=== PATIENT | female | born 1950 ===

== ENCOUNTER 2021-01-04 18:30 | Inpatient (IN) | payer OTHER ==
[~2021-01-04] VITALS: Ht 165.1 cm; Wt 78.6 kg
--- NOTE | 2021-01-04 18:45 | NUR ---
bib ems from home. pt seen at earlier today where pt states given dx of pna. pt then went home and had difficulty breathing. per ems resp rate of 40 and wheezes in all feilds with rhonchi in uppers. albuterol and duo neb admin. pt in room and placed on room air. pt speaking in full sentences and in nad. pt fully vaccinated with pfizer. covid test today at [facility]. ekg performed, pt placed on cardiac, nibp and o2 monitoring.
--- NOTE | 2021-01-04 18:49 | NUR ---
per pt with taina alves at bedside. if anything were to happen no cpr. pt is ok with being intubated.
[2021-01-04] MEDS ORDERED: ALBUTEROL/IPRATROPIUM 2.5MG/0.5MG, 3 ML NPPB ONE (19:30)
[2021-01-04] MEDS ORDERED: DEXAMETHASONE 4 MG TABLET PO ONE (19:30)
[2021-01-04] MEDS ORDERED: DEXAMETHASONE 4 MG TABLET ONE (19:32)
[2021-01-04] MEDS ORDERED: ALBUTEROL/IPRATROPIUM 2.5MG/0.5MG, 3 ML ONE (19:33)
--- NOTE | 2021-01-04 20:33 | NUR ---
GIL ROBERTSON [phone]
[2021-01-04 20:46] LABS: BASOPHILS % (AUTO) 0 % (0-1); EOSINOPHILS % (AUTO) 1 % (1-7); LYMPHOCYTES % (AUTO) 10 % (22-44); MEAN CORPUSCULAR HEMOGLOBIN 31.5 pg (27.0-34.8); MEAN PLATELET VOLUME 8.1 fL (7.4-10.4); MONOCYTES % (AUTO) 11 % (2-9); NEUTROPHILS % (AUTO) 78 % (42-75); PLATELET COUNT 277 x10^3/uL (130-400); RED BLOOD COUNT 3.79 x10^6/uL (3.82-5.3); RED CELL DISTRIBUTION WIDTH 13.6 % (9.6-15.2)
[2021-01-04 20:54] LABS: ALBUMIN 2.3 g/dL (3.4-5.0); ANION GAP 13 mmol/L (5-15); CALCIUM 9.2 mg/dL (8.5-10.1); CHLORIDE 98 mmol/L (98-107)
[2021-01-04 21:00] LABS: ALANINE AMINOTRANSFERASE 31 U/L (12-78); ALKALINE PHOSPHATASE 96 U/L (45-117); BILIRUBIN,TOTAL 0.8 mg/dL (0.2-1.0); CREATININE 0.94 mg/dL (0.55-1.02); TOTAL PROTEIN 7.2 g/dL (6.4-8.2); TROPONIN I < 0.015 ng/mL (0.000-0.045)
--- NOTE | 2021-01-04 21:07 | NUR ---
ASSISTED PT TO RESTROOM AND BACK. TOLERATED WELL
[2021-01-04] MEDS ORDERED: POTASSIUM CHLORIDE 20 MEQ TAB.ER.PRT ONE ×2 (21:28→21:31)
[2021-01-04] MEDS ORDERED: POTASSIUM CHLORIDE 10 MEQ in SODIUM CHLORIDE 0.9% 250 ML IV ONE (21:30)
[2021-01-04] MEDS ORDERED: POTASSIUM CHLORIDE PMX 100 ML IV ONE (21:30)
[2021-01-04] MEDS ORDERED: POTASSIUM CHLORIDE 20 MEQ TAB.ER.PRT PO ONE (21:30)
[2021-01-04] MEDS ORDERED: LEVOFLOXACIN/PMX 750MG/150ML 150 ML IVPB ONE (22:30)
--- NOTE | 2021-01-04 22:38 | NUR ---
LAB AT BEDSIDE.
[2021-01-04] MEDS ORDERED: LEVOFLOXACIN/PMX 750MG/150ML 150 ML ONE (23:24)
[2021-01-04] MEDS ORDERED: DOCUSATE 100 MG CAPSULE PO PRN (23:30)
--- NOTE | 2021-01-04 23:34 | NUR ---
PT SWABBED FOR COVID AND WALKED TO LAB
[2021-01-05] MEDS ORDERED: MELATONIN 5 MG TABLET ONE ×2 (01:03→22:29)
[2021-01-05] MEDS: MELATONIN 5 MG TABLET PO PRN ×2 (01:05→22:31)
--- NOTE | 2021-01-05 01:05 | NUR ---
Break RN: patient c/o the room being too loud. Offered melatonin for sleep; patient accepted. Medicated patient per mar.
--- NOTE | 2021-01-05 01:56 | NUR ---
PT ON ADMIT HOSPITAL BED. ASSISTED TO RESTROOM AND BACK. NO CHANGE IN PT STATUS. WILL CONTINUE TO MONITOR.
[2021-01-05] MEDS ORDERED: ALBUTEROL HFA 90 MCG/SPRAY INH PRN (02:00)
--- NOTE | 2021-01-05 03:14 | NUR ---
PT SLEEPING AT THIS TIME. NADN. VSS. PT O2 DECREASED WHILE SLEEPING. PT PLACED ON 2L O2 NC. PT O2 97%. WILL CONTINUE TO MONITOR
[2021-01-05] MEDS ORDERED: ENOXAPARIN 40 MG/0.4 ML ONE ×2 (03:45→23:26)
[2021-01-05] MEDS: ENOXAPARIN 40 MG/0.4 ML SQ SCH ×2 (03:52→23:28)
--- NOTE | 2021-01-05 05:41 | NUR ---
PT SLEEPING. NADN. WILL CONTINUE TO MONITOR.
[2021-01-05 05:45] LABS: BASOPHILS % (AUTO) 0 % (0-1); EOSINOPHILS % (AUTO) 0 % (1-7); LYMPHOCYTES % (AUTO) 4 % (22-44); MEAN CORPUSCULAR HEMOGLOBIN 31.2 pg (27.0-34.8); MEAN CORPUSCULAR HGB CONC 33.8 g/dL (32.4-35.8); MEAN PLATELET VOLUME 7.6 fL (7.4-10.4); MONOCYTES % (AUTO) 2 % (2-9); NEUTROPHILS % (AUTO) 94 % (42-75); PLATELET COUNT 282 x10^3/uL (130-400); RED BLOOD COUNT 3.69 x10^6/uL (3.82-5.3); RED CELL DISTRIBUTION WIDTH 13.6 % (9.6-15.2)
[2021-01-05 05:59] LABS: ANION GAP 10 mmol/L (5-15); CALCIUM 9.3 mg/dL (8.5-10.1); CHLORIDE 105 mmol/L (98-107); CREATININE 0.42 mg/dL (0.55-1.02)
--- NOTE | 2021-01-05 06:58 | NUR ---
REPORT GIVEN TO GILBERT CAMPOVERDE. CARE TRANSFERED.
--- NOTE | 2021-01-05 09:44 | NUR ---
PT SITTING UP IN BED WITH EYES OPEN. NAD. RAILS UP. CALL LIGHT AND BELONGING WITHIN REACH. PT PROVIDED APPLE JUICE AT HER REQUEST. PHYSICAL ASSESSMENT AND VS COMPLETED.
--- NOTE | 2021-01-05 11:26 | NUR ---
PT RESTING ON HOSPITAL BED WITH EYES CLOSED. EVEN RISE AND FALL OF CHEST NOTED. NAD. RAILS UP. BELONGINGS AND CALL LIGHT WITHIN REACH. PT CONNECTED TO MONITORING EQUIPMENT.
--- NOTE | 2021-01-05 13:00 | NUR ---
PT LUNCH TRAY DELIVERED. PT NOT HUNGRY AT THIS TIME. PT ON HOSPITAL BED. NAD. VS OBTAINED. RAILS UP. CALL LIGHT AND BELONGINGS WITHIN REACH.
--- NOTE | 2021-01-05 14:13 | NUR ---
TASK RN: PT UPRIGHT ON GURNEY AWAKE & COMFORTABLE, WATCHING TV, RESPONDS APPROP TO STAFF, NAD, NO NEEDS AT THIS TIME, CALL LIGHT WITHIN REACH.
[2021-01-05] MEDS ORDERED: LEVO88TA2 PO (15:19)
[2021-01-05] MEDS ORDERED: OMEP-110 PO (15:19)
--- NOTE | 2021-01-05 17:13 | NUR ---
PT DINNER TRAY DELIVERED. PT LAYING ON SIDE WITH EYES CLOSED, EVEN RISE AND FALL OF CHEST NOTED. SPO2 ON 2 LPM 96%, PULSE 64, RESPIRATIONS 14. NAD. RAIL UP. CALL LIGHT AND BELONGINGS WITHIN REACH.
--- NOTE | 2021-01-05 20:28 | NUR ---
Patient is resting comfortably in bed. Bed in lowest, rails engaged, call light on lap. Vital Signs within normal limits. WCTM. Addendum: 01/05/21 at 2028 by [email or web address] PT ON PHONE TALKING TO FAMILY MEMBERS. A&OX4 , BREATHING EVEN AN UNLABORED.
[2021-01-05] MEDS ORDERED: DIURETIC (21:37)
[2021-01-05] MEDS ORDERED: PILOCARPINE (21:37)
--- NOTE | 2021-01-05 21:38 | NUR ---
Patient is resting comfortably in bed. Bed in lowest, rails engaged, call light on lap. Vital Signs within normal limits. WCTM. NADN
[2021-01-05] MEDS ORDERED: LEVOFLOXACIN/PMX 500MG/100ML 100 ML ONE (23:21)
[2021-01-05] MEDS ORDERED: LEVOFLOXACIN/PMX 750MG/150ML 150 ML ONE (23:30)
[2021-01-05] MEDS ORDERED: LEVOFLOXACIN/PMX 750MG/150ML 150 ML IV SCH (23:30)
--- NOTE | 2021-01-06 00:03 | NUR ---
Patient is SLEEPING comfortably in bed. EYES CLOSED. Bed in lowest, rails engaged, call light on lap. Vital Signs within normal limits. WCTM.
--- NOTE | 2021-01-06 01:42 | NUR ---
Patient is resting comfortably in bed. Bed in lowest, rails engaged, call light on lap. Vital Signs within normal limits. WCTM.
[2021-01-06] MEDS ORDERED: DIPHENHYDRAMINE 50 MG/ML, 1ML ONE (03:21)
--- NOTE | 2021-01-06 03:24 | NUR ---
PT IV STOPPED WORKING IN RIGHT FOREARM. PT RIGHTFOREARM INFILTRATED SLIGHTLY. INFILTRATION NOT VISIBLE ANYMORE. PT ATB RESTARTED WHEN RIGHT HAND IV WAS PLACED. PT ARM BEGAN TO SHOW HIVES AND ITCH. NOTIFIED [facility] AND WAS TOLD TO GIVE BENADRYL. PT ARM HIVES AND ITCHINESS NOW GONE. PT IN NADN. VSS. TM
[2021-01-06 05:24] LABS: MEAN CORPUSCULAR HEMOGLOBIN 30.8 pg (27.0-34.8); MEAN PLATELET VOLUME 8.1 fL (7.4-10.4); PLATELET COUNT 343 x10^3/uL (130-400); RED BLOOD COUNT 3.73 x10^6/uL (3.82-5.3); RED CELL DISTRIBUTION WIDTH 13.9 % (9.6-15.2)
[2021-01-06 05:40] LABS: ANION GAP 6 mmol/L (5-15); CALCIUM 9.6 mg/dL (8.5-10.1); CHLORIDE 106 mmol/L (98-107)
[2021-01-06 05:42] LABS: CREATININE 0.49 mg/dL (0.55-1.02)
[2021-01-06 06:01] LABS: BAND#(MANUAL) 0.17 x10^3/uL; BANDS%(MANUAL) 1 % (0-7); LYMPH#(MANUAL) 1.66 x10^3/uL (1-3.4); LYMPHS% (MANUAL) 10 % (22-44); METAMYELOCYTES# (MANUAL) 0.17 x10^3/uL (0-0); METAMYELOCYTES% (MANUAL) 1 % (0-1); MONOS#(MANUAL) 1.66 x10^3/uL (0.3-2.7); MONOS% (MANUAL) 10 % (2-9); SEG#(MANUAL) 12.95 x10^3/uL (1.8-6.8); SEGS% (MANUAL) 78 % (42-75)
[2021-01-06 06:02] LABS: <PLATELET ESTIMATE> ADEQUATE; <PLT MORPHOLOGY> NORMAL PLT MORPH; <RBC MORPHOLOGY> NORMAL
--- NOTE | 2021-01-06 06:42 | NUR ---
Patient is SLEEPING comfortably in bed. Bed in lowest, rails engaged, call light on lap. Vital Signs within normal limits. WCTM.
--- NOTE | 2021-01-06 06:51 | NUR ---
Took report from Mukul Flynn RN, assume care at this time.
--- NOTE | 2021-01-06 07:04 | NUR ---
GAVE REPORT TO LEIGH ANN HUNT. TRANSFER OF CARE.
--- NOTE | 2021-01-06 07:23 | NUR ---
ED DIET ORDERED
--- NOTE | 2021-01-06 08:04 | NUR ---
PT SLEEPING, NAD
[2021-01-06] MEDS ORDERED: ACETAMINOPHEN 325 MG TABLET ONE (12:34)
[2021-01-06] MEDS: ACETAMINOPHEN 325 MG TABLET PO PRN (12:37)
--- NOTE | 2021-01-06 12:38 | NUR ---
ED DIET TRAY ORDERED, NAD
[2021-01-06] MEDS ORDERED: BENZONATATE 100 MG CAPSULE PO ONE (13:00)
[2021-01-06] MEDS ORDERED: BENZONATATE 100 MG CAPSULE ONE (15:27)
[2021-01-06] MEDS ORDERED: DOXYCYCLINE 100MG TABLET ONE (15:27)
[2021-01-06] MEDS: DOXYCYCLINE 100MG TABLET PO SCH (15:30)
[2021-01-06] MEDS: CEFTRIAXONE 2 GM in DEXTROSE 5% 50 ML IVPB SCH (15:32)
--- NOTE | 2021-01-06 15:36 | NUR ---
REPORT FROM LEIGH ANN RN, ASSUME CARE OF PT AT THIS TIME. MEDS GIVEN PER EMAR. PT TO CT.
[2021-01-06] MEDS ORDERED: OMNIPAQUE 350 MG/ML, 75ML BOTTLE ONE (15:45)
[2021-01-06] MEDS ORDERED: MELATONIN 5 MG TABLET ONE (20:43)
[2021-01-06] MEDS ORDERED: OMEPRAZOLE 20 MG CAPSULE.DR ONE (20:43)
[2021-01-06] MEDS: OMEPRAZOLE 20 MG CAPSULE.DR PO SCH (20:46)
[2021-01-06] MEDS: MELATONIN 5 MG TABLET PO PRN (20:46)
--- NOTE | 2021-01-06 20:52 | NUR ---
PT MEDICATED PER EMAR AND MELATONIN GIVEN PER PT REQUEST. PT AMBULATORY TO BR NEEDED, STEADY GAIT. HEART MONITOR AND PULSE OX BACK IN PLACE. WARM BLANKETS, DOROTHY WARMER PROVIDED, LIGHTS OFF. CALL LIGHT WITHIN REACH.
--- NOTE | 2021-01-06 21:16 | NUR ---
REPORT TO TONIE, TRANSFER OF CARE AT THIS TIME.
--- NOTE | 2021-01-06 23:42 | NUR ---
pt sleeping in hosptial bed, diana clark.
--- NOTE | 2021-01-07 01:28 | NUR ---
report given to receiving joselyn Minor
[2021-01-07 02:29] VITALS: BP 104/65
[2021-01-07] MEDS: DOXYCYCLINE 100MG TABLET PO SCH ×2 (02:46→09:00)
[2021-01-07] MEDS: ENOXAPARIN 40 MG/0.4 ML SQ SCH (02:46)
[2021-01-07] MEDS: ACETAMINOPHEN 325 MG TABLET PO PRN (05:19)
[2021-01-07] MEDS: GUAIFENESIN/DM 200-20MG, 10ML UDC PO PRN ×4 (05:20→18:36)
[2021-01-07] MEDS ORDERED: LEVOTHYROXINE 88 MCG TABLET PO SCH (06:00)
[2021-01-07] MEDS: OMEPRAZOLE 20 MG CAPSULE.DR PO SCH (09:16)
[2021-01-07 09:25] VITALS: BP 99/57
[2021-01-07 11:41] LABS: BASOPHILS % (AUTO) 1 % (0-1); EOSINOPHILS % (AUTO) 1 % (1-7); LYMPHOCYTES % (AUTO) 17 % (22-44); MEAN CORPUSCULAR HEMOGLOBIN 30.9 pg (27.0-34.8); MEAN CORPUSCULAR HGB CONC 33.3 g/dL (32.4-35.8); MEAN PLATELET VOLUME 7.6 fL (7.4-10.4); MONOCYTES % (AUTO) 11 % (2-9); NEUTROPHILS % (AUTO) 71 % (42-75); PLATELET COUNT 335 x10^3/uL (130-400); RED BLOOD COUNT 3.72 x10^6/uL (3.82-5.3); RED CELL DISTRIBUTION WIDTH 13.8 % (9.6-15.2)
[2021-01-07 11:46] LABS: ANION GAP 6 mmol/L (5-15); CHLORIDE 107 mmol/L (98-107); CREATININE 0.47 mg/dL (0.55-1.02)
[2021-01-07] MEDS: CEFTRIAXONE 2 GM in DEXTROSE 5% 50 ML IVPB SCH (13:24)
[2021-01-07] MEDS ORDERED: CEFD300C37 PO (15:02)
[2021-01-07] MEDS ORDERED: DOXY100T23 PO (15:02)
[2021-01-07] MEDS ORDERED: ALBU18HF INH (15:02)
[2021-01-07 15:52] VITALS: BP 104/58
[2021-01-07] MEDS ORDERED: BENZ100C PO (16:08)
[2021-01-07] MEDS ORDERED: GUAI5SYR PO (16:08)
[2021-01-07] MEDS ORDERED: BENZONATATE 100 MG CAPSULE PO PRN (16:30)
[2021-01-07] MEDS ORDERED: LEVOFLOXACIN/PMX 750MG/150ML 150 ML IV SCH (23:00)
== END 2021-01-07 20:30 | disposition home or self-care (01) | DRG 177 ==
LOC: ED 19:00 → EDIP 01-05 05:02 → 3N 01-07 02:24
PROVIDERS: ADMIT Family Medicine; ATTEND Internal Medicine
DX: J15.6 Pneumonia due to other Gram-negative bacteria (principal); E43 Unspecified severe protein-calorie malnutrition; Z68.28 Body mass index [BMI] 28.0-28.9, adult; E03.9 Hypothyroidism, unspecified; E87.6 Hypokalemia; Z20.822 Contact with and (suspected) exposure to COVID-19; Z66 Do not resuscitate; Z88.0 Allergy status to penicillin; Z88.1 Allergy status to other antibiotic agents; Z88.8 Allergy status to other drugs, medicaments and biological substances
CPT/HCPCS: 36415; 71045; 71275; 80048; 80053; 83735; 83880; 84100; 84145; 84484; 85025; 87040; 93005; 99291; G0378; J0696; J1650; J1956; J3480; Q9967; U0005; J7050; U0003